=== PATIENT | male | born 1940 | race Caucasian/White ===

== ENCOUNTER 2019-02-16 06:35 | Day surgery (SDC) | payer OTHER, BC ==
[2019-02-13 09:09] VITALS: BMI 29.0
[2019-02-16] MEDS ORDERED: PROPOFOL 20 ML ONE ×2 (07:50→11:27)
[2019-02-16] MEDS ORDERED: MIDAZOLAM HCL 2 MG/2 ML SINGLE DOSE VIAL ONE (07:50)
[2019-02-16] MEDS ORDERED: LIDOCAINE HCL/PF 2% SDV 5ML VIAL ONE ×2 (11:10→11:26)
[2019-02-16] MEDS ORDERED: levoFLOXacin 500 MG IVPB 1,500 MG/300 ML BAG IVPB ONE (11:18)
[2019-02-16] MEDS ORDERED: KETOROLAC TROMETHAMINE 30 MG/1 ML VIAL ONE (11:26)
[2019-02-16] MEDS ORDERED: DEXAMETHASONE SOD PHOSPHATE 4 MG/1 ML VIAL ONE (11:26)
[2019-02-16] MEDS ORDERED: SUCCINYLCHOLINE CHLORIDE 200 MG/10 ML SYRINGE ONE (11:28)
--- NOTE | 2019-02-16 12:20 | OP ---
Operative Note - Note: Operative Date: 02/16/19 Pre-Operative Diagnosis: bladder stones Operation: cystoscopy/laser lithotripsy of bladder stones Findings: two stones each measuring greater than 5 cm Post-Operative Diagnosis: Same as Pre-op Surgeon: Mark Marsh Anesthesia: General Specimens Removed: bladder stone fragments Drains & Tubes with Location: 18 fr bah
[2019-02-16] MEDS ORDERED: ONDANSETRON 4 MG/2 ML VIAL IVPUSH PRN (12:23)
[2019-02-16] MEDS ORDERED: LACTATED RINGERS SOLUTION 1,000 ML IV SCH (12:30)
[2019-02-16] MEDS ORDERED: RAMIPRIL 5 MG CAPSULE (FP) PO ONE ×2 (12:37→13:15)
[2019-02-16 17:41] VITALS: BP 149/72; PULSE 85; TEMP 98
--- NOTE | 2019-02-16 17:42 | OP ---
DATE OF OPERATION: 02/16/2019 PREOPERATIVE DIAGNOSIS: Bladder stone. POSTOPERATIVE DIAGNOSIS: Bladder stone. PROCEDURE: Cystoscopy, laser lithotripsy, bladder stones. ATTENDING: Sujey Joe MD ANESTHESIA: General. DESCRIPTION OF PROCEDURE: With the patient under anesthesia, cystoscopy was performed. Two large stones each measuring more than 5 cm were noted within the bladder. Levaquin was given preoperatively for surgical prophylaxis. At this point, the Holmium laser was utilized the fragment the stone. After fragmentation, the stone fragments were sent for pathologic evaluation. There was no complications noted. Small fragments were left within the bladder as they would pass without issues. The patient tolerated the procedure very well. DISPOSITION: Patient to recovery room. SUJEY JOE M.D. [id number]
--- NOTE | 2019-02-19 11:28 | PATH ---
Surgical Pathology Report Patient Name: ALISSA FARLEY [facility]. Rec. #: [id number] /Age/Gender: 1940 (Age: 78) / M Account: [id number] Location: [facility] Taken: 02/16/2019 Received: 02/16/2019 Reported: 02/19/2019 Physicians: Mark Marsh Specimen(s) Received BLADDER STONE Clinical History Calculus in bladder Final Diagnosis BLADDER STONE, REMOVAL: CONSISTENT WITH BLADDER STONE. SENT FOR CHEMICAL ANALYSIS. Electronically Signed Zachary Luciano M.D. Gross Description Received fresh labeled "bladder stone," is a 1.0 x 0.7 x 0.3 cm aggregate of low-yellow, irregular to fragmented calculi. The specimen is sent for chemical analysis. 02/16/201902/16/2019
== END 2019-02-16 17:40 | disposition home or self-care (01) ==
LOC: JASU-SURG 06:35
PROVIDERS: ATTEND Urology
PROC: 0TCB8ZZ Extirpation of Matter from Bladder, Via Natural or Artificial Opening Endoscopic (ICD-10-PCS; principal; 2019-02-16 09:00)
DX: N21.0 Calculus in bladder (principal); I10 Essential (primary) hypertension; E11.9 Type 2 diabetes mellitus without complications
CPT/HCPCS: 36415; 76000-TC-FY; 82360; 82962; 94760

== ENCOUNTER 2019-02-21 01:17 | Emergency (ER) | payer OTHER, BC ==
[2019-02-21 02:16] VITALS: BP 155/71; PULSE 75; TEMP 98.1; BMI 31.6
[2019-02-21] MEDS ORDERED: morphine CARPU-JECT 4 MG/1 ML DISP.SYRIN IVPUSH ONE (03:00)
--- NOTE | 2019-02-21 03:00 | PDOC ---
History of Present Illness - General Chief Complaint: Urinary Catheter Problem Stated Complaint: POST OP URINARY PROBLEM Time Seen by Provider: 02/21/19 02:57 History Source: Patient, Significant Other (Fiance at bedside.), Old Records Exam Limitations: No Limitations - History of Present Illness Initial Comments: HPI: 78 y/o male presenting to [facility] ER complaining of pain in the tip of his penis and urinary retention for the past two days. Pt underwent uroscopy and lithotripsy by Dr. Irvin on 16 Feb 2019. He was discharged with 18Fr Bah in place. Pt noticed a significant decrease in urine output that continued to slow. No sharmila blood. Denies flank pain, fevers, chills, nausea, vomiting, or abdominal pain. Medical Hx: - HTN - Diabetes, managed with metformin Review of Systems: 10 point review of systems completed. All systems negative except as noted above. Physical Examination: Vital signs and nursing notes reviewed. Constitutional- Well-developed, well-nourished adult male in no acute distress but obvious discomfort. Found semi-fowlers on hospital bed. Answered all questions appropriately and completely. Cardiovascular / Chest- Regular rate. Peripheral pulses- radial pulses full. Respiratory- Breathing unlabored. Equal chest rise and fall. Gastrointestinal- abdomen is soft, non-tender, non-distended. No lower abdomen distention. Male : Genital exam revealed normally developed male genitalia. Normal appearing uncircumcised penis. No scrotal mass or tenderness. No urethral discharge. Bah catheter in place. No hematuria noted in the attached leg bag. ED Attending chaperoned exam. Neuro- Alert and oriented x4. Moving all four extremities spontaneously. Skin- Warm, dry, and intact. Psych- Affect- appropriate. Mood- normal. Speech was non-labored, non- pressured. MDM: A bedside ultrasound was conducted to assess for bladder volume with clinical indications of urinary retention. The bladder was identified and viewed in the transverse and sagittal plane. The bladder volume was calculated to be approx. 375 ml. RN replaced bah. Initially noted clots, but now clear urine. Pt reports pain has resolved. UA with urine culture obtained. Will place call back reminder for urine culture. Pt will continue to take previously prescribed Levofloxacin. F/u appt already scheduled with Dr. Irvin on this coming Saturday. Past History - Past Medical History Allergies/Adverse Reactions: Allergies Allergy/AdvReac Type Severity Reaction Status Date / Time No Known Allergies Allergy Verified 02/16/19 07:43 Home Medications: Ambulatory Orders Ramipril [Altace] 10 mg PO HS 12/21/11 metFORMIN HCL [Metformin ER Osmotic] 500 mg PO DAILY 07/26/14 Aspirin Coated [Ecotrin -] 81 mg PO DAILY #1 07/27/14 Carvedilol 6.25 mg PO BID 02/16/19 Finasteride 5 mg PO HS 02/16/19 Silodosin [Rapaflo] 4 mg PO HS 02/16/19 levoFLOXacin [Levaquin -] 500 mg PO DAILY #7 tablet 02/16/19 Anemia: No Asthma: No Cancer: No Cardiac Disorders: No CVA: No COPD: No CHF: No Dementia: No Diabetes: Yes (NIDDM) GI Disorders: No Disorders: Yes HTN: Yes Hypercholesterolemia: Yes Liver Disease: No Seizures: No Thyroid Disease: No - Surgical History Abdominal Surgery: No Appendectomy: No Cardiac Surgery: No Cholecystectomy: No Lung Surgery: No Neurologic Surgery: No Orthopedic Surgery: Yes (knee sx left) - Psycho Social/Smoking Cessation Hx Smoking History: Never smoked Have you smoked in the past 12 months: No If you are a former smoker, when did you quit?: 1974 Hx Alcohol Use: No Drug/Substance Use Hx: No Substance Use Type: None *Physical Exam - Vital Signs Last Vital Signs Temp Pulse Resp BP Pulse Ox 98.1 F 75 18 155/71 96 02/21/19 02:12 02/21/19 02:12 02/21/19 02:12 02/21/19 02:12 02/21/19 02:12 ED Treatment Course - LABORATORY CBC & Chemistry Diagram: 02/21/19 03:11 02/21/19 03:11 Discharge - Discharge Information Problems reviewed: Yes Clinical Impression/Diagnosis: Urinary catheter (Bah) change required Urinary catheter complication Qualifiers: Encounter type: initial encounter Qualified Code(s): T83.9XXA - Unspecified complication of genitourinary prosthetic device, implant and graft, initial encounter Condition: Improved Disposition: HOME - Admission No - Follow up/Referral Referrals: Trevor Lucas MD [Primary Care Provider] - Mark Irvin MD [Staff Physician] - CallBack Reminder: Urine Culture - Patient Discharge Instructions Patient Printed Discharge Instructions: How to Care for Your Bah Catheter -- Male Additional Instructions: You were seen today for urinary retention and bladder pain. Your bah catheter was replaced. The previous one was likely obstructed. You can take over the counter Tylenol or Advil as needed for pain. Take as directed on the package insert. Do not exceed the recommended dosage. Follow up with Dr. Irvin at your previously scheduled appointment. A copy of todays results are attached to this packet. Take it to the appointment so your doctor can review them. Go to the nearest emergency department if your condition worsens or you feel like you need additional emergency evaluation. Print Language: THAI - Post Discharge Activity Work/Back to School Note: Back to Work
[2019-02-21] MEDS ORDERED: morphine SULFATE 4 MG/ML VIAL ONE (03:01)
[2019-02-21 03:27] LABS: BASO % 0.5 % (0-2.0); EOS % 0.5 % (0-4.5); HEMATOCRIT 31.2 % (35.4-49); HEMOGLOBIN 10.5 GM/dL (11.7-16.9); LYMPH % 17.5 % (8-40); MCH 31.7 pg (25.7-33.7); MCHC 33.5 g/dl (32.0-35.9); MEAN CELL VOLUME 94.5 fl (80-96); MEAN PLT VOLUME 8.6 fl (7.5-11.1); MONO % 6.3 % (3.8-10.2); NEUT % 75.2 % (42.8-82.8); PLATELET COUNT 165 K/MM3 (134-434); RDW 14.5 % (11.9-15.9); WHITE BLOOD COUNT 8.4 K/mm3 (4.0-10.0)
[2019-02-21 03:54] LABS: ALBUMIN 3.4 g/dl (3.4-5.0); BILIRUBIN,TOTAL 1.2 mg/dL (0.2-1); BLOOD UREA NITROGEN 16.5 mg/dL (7-18); CALCIUM 8.5 mg/dL (8.5-10.1); CREATININE 1.1 mg/dL (0.55-1.3); POTASSIUM 3.9 mmol/L (3.5-5.1); TOT PROT 6.5 g/dl (6.4-8.2)
--- NOTE | 2019-02-21 04:37 | PDOC ---
Attending Attestation - Resident Resident Name: Fitz Fallon - ED Attending Attestation I have performed the following: I have examined & evaluated the patient, The case was reviewed & discussed with the resident, I agree w/resident's findings & plan, Exceptions are as noted - HPI HPI: 02/21/19 04:26 Mr Velarde is 78 y/o male presenting to [facility] ER complaining urinary retention Pt s/p ureteroscopy and lithotripsy by Dr. Irvin on 16 Feb 2019. He was discharged with 18Fr Bah in place, noted normal urine output since discharge. Over the past 2 days, he has noted significantly decreased urine output He has noted abdominal pain/fullness No sharmila blood. Denies flank pain, fevers, chills, nausea, vomiting, or abdominal pain. Medical Hx: - HTN - Diabetes, managed with metformin - Physicial Exam PE: 02/21/19 04:37 Constitutional- Well-developed, well-nourished, NAD Cardiovascular / Chest- Regular rate. Peripheral pulses- radial pulses full. Respiratory- Breathing unlabored. Equal chest rise and fall. Gastrointestinal- abdomen is soft, lower abdominal distention, mild discomfort : nml external genitalia, No urethral discharge. Bah catheter in place. Neuro- Alert and oriented x4. Moving all four extremities spontaneously. Skin- Warm, dry, and intact. - Medical Decision Making 02/21/19 04:38 78 yo M presenting with a complaint of urinary retention bah is in place but is not draining Cathether was flushed, still not draining Foely cathether changed and is now draining 02/21/19 04:47 Laboratory Tests 02/21/19 02/21/19 03:11 03:11 WBC 8.4 Hgb 10.5 L Hct 31.2 L Plt Count 165 BUN 16.5 Creatinine 1.1 02/21/19 04:47 UA pending Pt is already on Levaquin Anticipate discharge with PMD follow up
[2019-02-21 05:33] LABS: PH,URINE 6.5 (5.0-8.0); URINE APPEARANCE CLEAR; URINE BILIRUBIN NEGATIVE (NEGATIVE); URINE COLOR RED; URINE GLUCOSE (UA) NEGATIVE (NEGATIVE); URINE KETONE NEGATIVE (NEGATIVE); URINE LEUK ESTERASE TRACE (NEGATIVE); URINE NITRITE NEGATIVE (NEGATIVE); URINE PROTEIN 2+ (NEGATIVE); URINE UROBILINOGEN 0.2 mg/dL (0.2-1.0)
[2019-02-21 07:33] LABS: URINE RBC 36 /hpf (0-4); URINE WBC 4 /hpf (0-5)
[2019-02-21 07:34] LABS: EPI CELLS 3.6 /HPF (0-5/HPF); HYALINE CASTS 5 /lpf (0-8); URINE BACTERIA 7 /hpf (NEGATIVE)
== END 2019-02-21 05:52 | disposition home or self-care (01) ==
LOC: JER 01:17
PROC: 0T2BX0Z Change Drainage Device in Bladder, External Approach (ICD-10-PCS; principal; 2019-02-21)
DX: T83.098A Other mechanical complication of other urinary catheter, initial encounter (principal); Y84.6 Urinary catheterization as the cause of abnormal reaction of the patient, or of later complication, without mention of misadventure at the time of the procedure; Y73.8 Miscellaneous gastroenterology and urology devices associated with adverse incidents, not elsewhere classified; I10 Essential (primary) hypertension; E11.9 Type 2 diabetes mellitus without complications; Z79.84 Long term (current) use of oral hypoglycemic drugs; E78.00 Pure hypercholesterolemia, unspecified
CPT/HCPCS: 36415; 51701; 80053; 81003; 85025; 87086; 99283-25

== ENCOUNTER 2019-04-13 06:03 | Day surgery (SDC) | payer OTHER, BC ==
[2019-04-10 15:13] VITALS: BMI 28.5
[2019-04-13] MEDS ORDERED: PROPOFOL 20 ML ONE (08:25)
[2019-04-13] MEDS ORDERED: MIDAZOLAM HCL 2 MG/2 ML SINGLE DOSE VIAL ONE ×2 (08:27→08:44)
--- NOTE | 2019-04-13 10:43 | OP ---
Operative Note - Note: Operative Date: 04/13/19 Pre-Operative Diagnosis: bph/cap Operation: transurethral resection and vaporization of the prostate with bipolar system Findings: 3+ obstructed prostate with 3+ bladder trabeculation Post-Operative Diagnosis: Same as Pre-op Surgeon: Mark Marsh Anesthesia: General Specimens Removed: prostatic chips Estimated Blood Loss (mls): 30 Drains & Tubes with Location: 22 faroese bah Operative Report Dictated: Yes
[2019-04-13] MEDS ORDERED: ONDANSETRON 4 MG/2 ML VIAL IVPUSH PRN (11:11)
[2019-04-13] MEDS ORDERED: oxyCODONE HCL 5 MG TABLET PO PRN (11:11)
--- NOTE | 2019-04-13 14:00 | OP ---
DATE OF OPERATION: 04/13/2019 PREOPERATIVE DIAGNOSIS: Benign prostatic hypertrophy and prostate cancer. POSTOPERATIVE DIAGNOSIS: Benign prostatic hypertrophy and prostate cancer. PROCEDURE: Transurethral resection of the prostate and transurethral vaporization of prostate utilizing bipolar system. ATTENDING: Sujey Joe MD ANESTHESIA: General. DESCRIPTION OF OPERATION: The patient was brought in the operating room, placed in supine position on the operating room table. Anesthesia and preoperative antibiotics were administered without complications. Patient was then placed in the dorsal lithotomy position and prepped and draped in the usual sterile manner. A resectoscope was placed under visualization into the bladder. The bladder was investigated and noted to have no evidence of stones or neoplasm. A 3+ obstructive prostate was noted. Resection of the prostate in order to debulk the prostate was performed initially. The margins of the resection were the bladder neck proximally and the verumontanum distally. The resection was performed in a 360-degree fashion. The resection was taken down to the level of the pseudocapsule of the prostate. Once this was performed, all prostatic chips were evacuated from the bladder utilizing the [facility] evacuator. At this point, the working element, which had been the loop, was changed to a button. Vaporization and cauterization was then ensured utilizing the button element of the bipolar system. Residual tissue was vaporized, and excellent hemostasis was attained within the prostatic fossa. The margins of the vaporization and cauterization were the bladder neck proximally and the verumontanum distally. This was done again in a 360-degree fashion. Excellent hemostasis was attained. The bladder was investigated and noted to have no evidence of residual prostatic tissue. There was no evidence of perforation of the bladder. The abdomen was soft on examination during the procedure. With excellent hemostasis, the resectoscope was removed, and a Patel catheter placed, 30 mL were inflated into the balloon of the catheter and placed on light traction. Excellent drainage was noted which was light pink in color. The disposition of the patient was to the recovery room. The catheter had been placed to straight drainage. The patient will be observed in the recovery room and the postop area. If the patient continues to do well, he will be discharged home. SUJEY JOE M.D. [id number]
[2019-04-13] MEDS: metFORMIN HCL 500 MG TABLET (FP) PO SCH (16:30)
[2019-04-13] MEDS: CARVEDILOL 6.25 MG TABLET (FP) PO SCH (22:05)
[2019-04-13] MEDS: LACTATED RINGERS SOLUTION 1,000 ML IV SCH (22:05)
[2019-04-14] MEDS: LACTATED RINGERS SOLUTION 1,000 ML IV SCH (06:35)
[2019-04-14] MEDS: metFORMIN HCL 500 MG TABLET (FP) PO SCH (06:36)
[2019-04-14 09:14] VITALS: BP 149/83; PULSE 77; TEMP 98.1
[2019-04-14] MEDS: CARVEDILOL 6.25 MG TABLET (FP) PO SCH (09:16)
[2019-04-14] MEDS ORDERED: RAMIPRIL 5 MG CAPSULE (FP) PO SCH (10:00)
--- NOTE | 2019-04-15 16:45 | PATH ---
Surgical Pathology Report Patient Name: ALISSA FARLEY [facility]. Rec. #: [id number] /Age/Gender: 1940 (Age: 79) / M Account: [id number] Location: AMBULATORY SURG Taken: 04/13/2019 Received: 04/13/2019 Reported: 04/15/2019 Physicians: Mark Marsh Specimen(s) Received PROSTATE TISSUE Clinical History Prostate hyperplasia, Prostate cancer (3+3), s/p Lupron Final Diagnosis AMENDED REPORT PROSTATE TISSUE, TRANSURETHRAL RESECTION OF PROSTATE: ACINAR ADENOCARCINOMA, YESICA SCORE 3+3 = 6, GRADE GROUP 1, WITH FOCAL TREATMENT RELATED CHANGES. CARCINOMA PRESENT IN 7 OF 110 CHIPS. ESTIMATED PERCENTAGE PROSTATE TISSUE INVOLVED BY TUMOR IS ~5%. NO HIGH GRADE PROSTATIC INTRAEPITHELIAL NEOPLASIA (HGPIN) IDENTIFIED. NO LYMPHOVASCULAR INVASION IDENTIFIED. NO PERINEURAL INVASION IS IDENTIFIED. REMAINDER OF PROSTATE TISSUE SHOW NODULAR PROSTATIC HYPERPLASIA, CYSTIC CHANGES, ATROPHY, ACUTE AND CHRONIC INFLAMMATION. SEE SURGICAL PATHOLOGY CANCER CASE SUMMARY BELOW. Comment: Immunohistochemical stains performed at [place], [place] ([id number]) and interpreted at [facility] show loss of basal layer (Negative: CK-HMW and p63) in the areas of adenocarcinoma. Tumor is positive for AMACR ([id number]). Prior biopsy result of Yesica 3+3, s/p Reynaron noted. Viable tumor is Waverly 3+3=6. Waverly grading and staging are not recommended for areas with treatment related changes. Case discussed with Dr. Marsh, 04/15/19 Positive and negative controls (internal if applicable) show appropriate results. Comments Case Summary (AJCC 8th Edition) Procedure _x_ Transurethral resection of the prostate (TURP) Histologic Type _x_ Acinar adenocarcinoma Histologic Grade Grade Group and Yesica Score _x_ Grade group 1 (Waverly Score 3+3=6) Intraductal Carcinoma (IDC) _x_ Not identified Tumor Quantitation Number of positive chips: 7 Total number of chips: 110 Estimated percentage of prostatic tissue involved by tumor: ~5 % Percentage of tumor in each chip: ranges from 20 to 70% Lymphovascular Invasion _x_ Not identified Perineural Invasion _x_ Absent Additional Pathologic _x_ Inflammation: Acute and chronic inflammation _x_ Nodular prostatic hyperplasia Treatment Effect _x_ Hormonal therapy effect present Electronically Signed Vale Alcantar M.D. Amendments Amended: 04/15/2019 Previous Signout Date: 04/15/2019 Comment: Add grading of viable tumor. Gross Description Received in formalin labeled "prostate tissue," is an 11 g, 8.0 x 6.5 x 0.5 cm aggregate of multiple low, irregular, firm to rubbery portions of tissue, consistent with prostate tissue. The specimen is entirely submitted in 9 cassettes. 04/13/2019 saudi04/13/2019
== END 2019-04-14 12:07 | disposition home or self-care (01) ==
LOC: JASUSAT 06:03 → JSAMEDAYSX 06:08 → UNDOADMIN 06:08 → J6S 18:30 → JASUSAT 04-14 12:06
PROVIDERS: ATTEND Urology
PROC: 0VT08ZZ Resection of Prostate, Via Natural or Artificial Opening Endoscopic (ICD-10-PCS; principal; 2019-04-13 08:00)
DX: C61 Malignant neoplasm of prostate (principal); N40.0 Benign prostatic hyperplasia without lower urinary tract symptoms
CPT/HCPCS: 82962; 88305-TC; 88342-TC; 94760